=== PATIENT | female | born 1945 | race Caucasian/White ===

== ENCOUNTER 2017-11-07 13:27 | Outpatient (CLI) | payer MEDICARE, BC | END 2017-11-07 13:28 | disposition home or self-care (01) | LOC: BICMAMMO 13:27 | PROVIDERS: ATTEND Student in an Organized Health Care Education/Training Program | DX: N64.4 Mastodynia (principal); Z85.3 Personal history of malignant neoplasm of breast | CPT/HCPCS: 77066; G0279 ==

== ENCOUNTER 2018-12-03 17:06 | Emergency (ER) | payer MEDICARE, BC ==
[~2018-12-03 17:06] MED LIST: ISOVUE-370 76%-LOCM 1 ML ONE
[2018-12-03] MEDS ORDERED: Ondansetron PF 4 MG/2 ML Vial ONE ×3 (17:34→17:53)
[2018-12-03] MEDS ORDERED: Morphine 4 MG/ML VIAL ONE ×2 (17:34→17:52)
[2018-12-03 17:40] LABS: #Basophils 0.1 thou/uL (0.0-0.2); #Eosinphils 0.1 thou/uL (0.0-0.7); #Lymphocytes 2.8 thou/uL (1.20-3.40); #Monocytes 0.5 thou/uL (0.11-0.59); #Neutrophils 3.7 thou/uL (1.40-6.50); %Basophils 1.4 % (0.0-1.0); %Eosinophils 1.9 % (0.0-10.0); %Monocytes 7.4 % (0.0-10.0); %Neutrophils 50.3 % (42.0-75.0); Hemoglobin 14.1 g/dL (12.0-16.0); Mean Corpuscular HGB CONC 33.5 g/dL (32.0-36.0); Mean Corpuscular Hemoglobin 30.4 pg (27.0-31.0); Mean Corpuscular Volume 90.8 fL (78.0-98.0); Mean Platelet Volume 8.1 fL (7.4-10.4); Platelet Count 224 thou/uL (130-400); RBC Distribution Width 12.3 % (11.5-14.5); Red Blood Cell (RBC) Count 4.64 mill/uL (4.20-5.40); White Blood Cell (WBC) Count 7.3 thou/uL (4.8-10.8)
[2018-12-03 18:00] LABS: ALT (SGPT) 31 U/L (8-55); AST (SGOT) 30 U/L (5-34); Albumin 4.2 g/dL (3.4-4.8); Alkaline Phosphatase 48 U/L (40-150); Anion Gap 14 mmol/L (10-20); BUN (Urea Nitrogen) 21 mg/dL (9.8-20.1); Bilirubin, Total 0.3 mg/dL (0.2-1.2); Calc. Creatinine Clearance 0 mL/min (70-130); Calcium 9.6 mg/dL (7.8-10.44); Carbon Dioxide 24 mmol/L (23-31); Chloride 103 mmol/L (98-107); Estimated GFR-MDRD 57; Globulin 3.2 g/dL (2.4-3.5); Glucose 111 mg/dL (83-110); Lipase 39 U/L (8-78); Potassium 3.9 mmol/L (3.5-5.1); Protein, Total 7.4 g/dL (6.0-8.3); Sodium 137 mmol/L (136-145)
[2018-12-03 18:16] LABS: Bilirubin Negative (Negative); Blood, Urine Negative (Negative); Clarity CLEAR (Clear); Glucose, Urine (Dipstick) Negative (Negative); Leukocyte Trace (Negative); Nitrite Negative (Negative); Protein, Urine (Dipstick) Negative (Neg-Trace); Specific Gravity, Urine 1.008 (1.002-1.036); Urobilinogen 0.2 mg/dL (0.2-1.0); pH, Urine 5.5 (5.0-9.0)
[2018-12-03 18:18] LABS: Bacteria/HPF None Seen HPF (None Seen); Hyaline Casts/LPF 0-3 HYALINE CAST LPF (0-3 Hyaline); RBC/HPF 0-3 HPF (0-3); Squamous Epithelial 0-3 HPF (0-3); WBC/HPF 0-3 HPF (0-3)
--- NOTE | 2018-12-03 18:36 | CT ---
CT ABDOMEN WITH CONTRAST CT PELVIS WITH CONTRAST: DATE: 12/03/2018 HISTORY: 73-year-old female with left-sided abdominal pain. COMPARISON: None available TECHNIQUE: IV injection of iodinated contrast media: administered. Oral contrast media:Not administered FINDINGS: Several calcified gallstones within a nondistended gallbladder. No pericholecystic edema. Low hepatic attenuation possibly representing fatty liver. No hydronephrosis or pyelonephritis. No abdominal aortic aneurysm. Normal spleen, pancreas, adrenals, and urinary bladder. Appendix surgically absent b y history. Uterus is still present. No colonic diverticulitis. No small bowel dilation. Numerous diverticula throughout entire colon. Short sigmoid colon. No ascites or pneumoperitoneum. Lung bases are grossly clear. IMPRESSION: 1) cholelithiasis. 2) possible hepatic steatosis. 3) status post appendectomy and left partial colectomy. 4) pancolonic diverticulosis without diverticulitis.
== END 2018-12-03 18:46 | disposition home or self-care (01) ==
LOC: ERS 17:06
DX: R10.9 Unspecified abdominal pain (principal); E78.5 Hyperlipidemia, unspecified; I10 Essential (primary) hypertension; Z79.899 Other long term (current) drug therapy; Z79.82 Long term (current) use of aspirin
CPT/HCPCS: 74177; 80053; 81003; 81015; 83690; 84484; 85025; 93005; 96374; 96375; J2270; J2405; Q9966

== ENCOUNTER 2021-12-22 09:17 | Emergency (ER) | payer MEDICARE, BC | END 2021-12-22 11:08 | disposition home or self-care (01) | LOC: ERS 09:17 | DX: M25.562 Pain in left knee (principal); E78.5 Hyperlipidemia, unspecified; E78.00 Pure hypercholesterolemia, unspecified; I10 Essential (primary) hypertension ==

== ENCOUNTER 2023-02-07 08:38 | Outpatient (CLI) | payer MEDICARE, BC ==
[2023-02-07] MEDS ORDERED: Iopamidol-370 76% 500 ML MDV (1 ML CHARGE) ONE (09:39)
== END 2023-02-07 08:39 | disposition home or self-care (01) ==
LOC: BICCT 08:38
PROVIDERS: ATTEND Student in an Organized Health Care Education/Training Program
DX: Z15.09 Genetic susceptibility to other malignant neoplasm (principal); K76.0 Fatty (change of) liver, not elsewhere classified; K80.20 Calculus of gallbladder without cholecystitis without obstruction; K57.30 Diverticulosis of large intestine without perforation or abscess without bleeding
CPT/HCPCS: 74177; 82565; Q9967

== ENCOUNTER 2024-03-28 20:32 | Inpatient (IN) | payer MEDICARE, BC ==
[2024-03-29] MEDS ORDERED: Promethazine HCl 25 MG/ML VIAL IM PRN (00:10)
[2024-03-29] MEDS ORDERED: Acetaminophen 325 MG TAB PO PRN (00:10)
[2024-03-29] MEDS ORDERED: Dextrose 50% Abboject 50 ML SYRINGE SLOW IVP PRN (00:10)
[2024-03-29] MEDS ORDERED: Glucagon 1 MG/ML KIT IM PRN (00:10)
[2024-03-29] MEDS ORDERED: Ondansetron PF 4 MG/2 ML Vial IVP PRN (00:10)
[2024-03-29] MEDS ORDERED: Morphine 4 MG/ML VIAL SLOW IVP PRN (00:10)
[2024-03-29] MEDS ORDERED: Dextrose 5% in Water 1,000 ML IV PRN (00:10)
[2024-03-29 03:19] VITALS: BMI 33.7
[2024-03-29] MEDS: Meropenem 1 GM in Sodium Chloride 0.9% 100 ML IVPB SCH ×2 (04:43→11:58)
[2024-03-29] MEDS: Sodium Chloride 0.9% 1,000 ML IV SCH (04:43)
[2024-03-29] MEDS ORDERED: Boostrix 0.5 ML (Tdap) VIAL (>/=7 yrs of age) ONE (04:45)
[2024-03-29] MEDS: TETANUS, DIPHTHERIA TOX,ADULT (TDVAX) 0.5 ML VIAL IM ONE (04:58)
[2024-03-29 05:42] LABS: #Basophils Less than 0.03 10x3/uL (0.0-0.2); #Eosinphils Less than 0.03 10x3/uL (0.0-0.7); %Basophils 0.1 % (0.0-1.0); %Lymphocytes 6.2 % (21.0-51.0); %Monocytes 5.6 % (0.0-10.0); %Neutrophils 87.5 % (42.0-75.0); Hematocrit 36.7 % (36.0-47.0); Hemoglobin 12.1 g/dL (12.0-16.0); Mean Corpuscular Hemoglobin 29.9 pg (27.0-31.0); Mean Corpuscular Volume 90.6 fL (78.0-98.0); Mean Platelet Volume 11.1 fL (7.4-10.4); Platelet Count 152 10x3/uL (130-400); RBC Distribution Width 14.1 % (11.5-14.5); Red Blood Cell (RBC) Count 4.05 mill/uL (4.20-5.40)
[2024-03-29 06:12] LABS: ALT (SGPT) 290 U/L (8-55); AST (SGOT) 216 U/L (5-34); Albumin 2.9 g/dL (3.4-4.8); Alkaline Phosphatase 95 U/L (40-110); Anion Gap 11 mmol/L (10-20); BUN (Urea Nitrogen) 17 mg/dL (9.8-20.1); Bilirubin, Total 1.3 mg/dL (0.2-1.2); Calc. Creatinine Clearance 87 mL/min (70-130); Calcium 9.3 mg/dL (7.8-10.44); Carbon Dioxide 21 mmol/L (23-31); Chloride 108 mmol/L (98-107); Estimated GFR 76; Globulin 2.8 g/dL (2.4-3.5); Glucose 109 mg/dL (83-110); Potassium 3.2 mmol/L (3.5-5.1); Protein, Total 5.7 g/dL (5.8-8.1); Sodium 137 mmol/L (136-145)
[2024-03-29] MEDS: FLU (Fluad Triv) TS24-25 (65UP)/MF59C/PF 45 MCG/0.5 ML Syringe IM ONE (17:32)
[2024-03-30] MEDS ORDERED: Bupivacaine 0.25% HCL 30 ML VIAL ONE (10:24)
[2024-03-30] MEDS ORDERED: EPINEPHrine 1 MG/ML VIAL ONE (10:25)
[2024-03-30] MEDS ORDERED: Indocyanine Green 25 MG/10 ML VIAL ONE (10:29)
[2024-03-30] MEDS ORDERED: fentaNYL PF 100 MCG/2 ML SYRINGE ONE (10:31)
[2024-03-30] MEDS ORDERED: PROPOFOL 20 ML ONE (10:31)
[2024-03-30] MEDS ORDERED: Dexamethasone 20 MG/5 ML VIAL ONE (11:02)
[2024-03-30] MEDS ORDERED: NEOSTIGMINE 3 MG/3 ML SYRINGE ONE (11:02)
[2024-03-30] MEDS ORDERED: Glycopyrrolate 0.2 MG/ML 5 ML SYRINGE ONE (11:02)
[2024-03-30] MEDS ORDERED: Lidocaine 1% PF 5 ML VIAL ONE (11:02)
[2024-03-30] MEDS ORDERED: ePHEDrine Sulfate 50 MG/10 ML VIAL ONE (11:34)
[2024-03-30] MEDS ORDERED: Dextrose 50% Abboject 50 ML SYRINGE SLOW IVP PRN (12:24)
[2024-03-30] MEDS ORDERED: Glucagon 1 MG/ML KIT IM PRN (12:24)
[2024-03-30] MEDS ORDERED: Dextrose 5% in Water 1,000 ML IV PRN (12:24)
[2024-03-30] MEDS ORDERED: Calcium Carbonate 500 MG ChewTAB PO PRN (12:24)
[2024-03-30] MEDS ORDERED: HYDROcodone/Acetaminophen 10/325 mg Tablet PO PRN (12:24)
[2024-03-30] MEDS ORDERED: fentaNYL 50 mcg/mL 1 mL Vial ONE (12:30)
[2024-03-30] MEDS: D5 1/2 NS w/20 mEq KCL 1,000 ML IV SCH (13:22)
[2024-03-30] MEDS: Docusate 100 MG CAP PO SCH (21:39)
[2024-03-30] MEDS: traMADol HCl 50 MG TAB PO PRN (21:39)
[2024-03-30] MEDS: Famotidine 20 MG TAB PO SCH (21:39)
[2024-03-30] MEDS: Famotidine/PF 20 mg/2ml Vial SLOW IVP SCH (21:40)
[2024-03-31] MEDS: Enoxaparin 40 MG (0.4 mL) SYRINGE SC SCH (09:56)
[2024-03-31 11:29] VITALS: BP 144/81; TEMP 97.5
== END 2024-03-31 13:25 | disposition home or self-care (01) | DRG 417 ==
LOC: ERS 20:32 → ERHOLD 03-29 00:12 → SURG B 03-29 00:16
PROVIDERS: ADMIT Surgery; ATTEND Surgery
PROC: 0FT44ZZ Resection of Gallbladder, Percutaneous Endoscopic Approach (ICD-10-PCS; principal; 2024-03-30)
PROC: 8E0W4CZ Robotic Assisted Procedure of Trunk Region, Percutaneous Endoscopic Approach (ICD-10-PCS; 2024-03-30)
PROC: BF141ZZ Fluoroscopy of Gallbladder, Bile Ducts and Pancreatic Ducts using Low Osmolar Contrast (ICD-10-PCS; 2024-03-30)
PROC: 3E033XZ Introduction of Vasopressor into Peripheral Vein, Percutaneous Approach (ICD-10-PCS; 2024-03-30)
DX: K80.42 Calculus of bile duct with acute cholecystitis without obstruction (principal); K85.10 Biliary acute pancreatitis without necrosis or infection; Z88.8 Allergy status to other drugs, medicaments and biological substances; Z88.0 Allergy status to penicillin; M19.90 Unspecified osteoarthritis, unspecified site; E78.00 Pure hypercholesterolemia, unspecified; I10 Essential (primary) hypertension; Z90.49 Acquired absence of other specified parts of digestive tract; Z98.51 Tubal ligation status; Z98.890 Other specified postprocedural states; Z79.899 Other long term (current) drug therapy; Z79.82 Long term (current) use of aspirin
CPT/HCPCS: 36415; 76705; 80053; 85025; 88304; 90714; 90715; C1889; J0171; J0665; J1100; J1650; J2185; J2704; J3010; J3480; J3490; J7030

== ENCOUNTER 2025-05-25 13:59 | Emergency (ER) | payer MEDICARE, BC ==
[2025-05-25 16:08] LABS: #Basophils 0.04 10x3/uL (0.0-0.2); #Eosinophils 0.10 10x3/uL (0.0-0.7); #Monocytes 0.38 10x3/uL (0.11-0.59); #Neutrophils 4.41 10x3/uL (1.40-6.50); %Basophils 0.7 % (0.0-1.0); %Eosinophils 1.7 % (0.0-10.0); %Lymphocytes 13.9 % (21.0-51.0); %Monocytes 6.6 % (0.0-10.0); %Neutrophils 76.8 % (42.0-75.0); Hematocrit 38.3 % (36.0-47.0); Hemoglobin 12.3 g/dL (12.0-16.0); Mean Corpuscular Hemoglobin 29.3 pg (27.0-31.0); Mean Corpuscular Volume 91.2 fL (78.0-98.0); Platelet Count 169 10x3/uL (130-400); Red Blood Cell (RBC) Count 4.20 mill/uL (4.20-5.40); White Blood Cell (WBC) Count 5.75 10x3/uL (4.8-10.8)
[2025-05-25 16:21] LABS: INR-International Normal Ratio 1.1; Prothrombin Time 14.1 sec (12.0-14.7)
[2025-05-25 16:22] LABS: PTT 28.3 sec (22.9-36.1)
[2025-05-25 16:24] LABS: ALT (SGPT) 561 U/L (Less than 34); AST (SGOT) 581 U/L (11-34); Albumin 3.3 g/dL (3.1-4.5); Alkaline Phosphatase 84 U/L (40-110); Anion Gap 12 mmol/L (10-20); BUN (Urea Nitrogen) 22 mg/dL (9.8-20.1); Bilirubin, Total 0.4 mg/dL (0.3-1.2); Calc. Creatinine Clearance 0 mL/min (70-130); Calcium 9.0 mg/dL (7.8-10.44); Carbon Dioxide 21 mmol/L (23-31); Chloride 111 mmol/L (98-107); D-Dimer Test 1.45 mcg/mL (0.27-0.43); Globulin 2.7 g/dL (2.4-3.5); Glucose 98 mg/dL (83-110); Potassium 4.0 mmol/L (3.5-5.1); Sodium 140 mmol/L (136-145)
== END 2025-05-25 16:49 | disposition home or self-care (01) ==
LOC: ERS 13:59
DX: M79.605 Pain in left leg (principal); E78.00 Pure hypercholesterolemia, unspecified; I10 Essential (primary) hypertension; Z86.718 Personal history of other venous thrombosis and embolism; Z79.82 Long term (current) use of aspirin; Z79.899 Other long term (current) drug therapy
CPT/HCPCS: 80053; 85025; 85379; 85610; 85730